=== PATIENT | female | born 1975 | race Caucasian/White ===

== ENCOUNTER 2019-07-28 09:00 | Outpatient (CLI) | payer OTHER, SELFPAY ==
[2019-07-29 02:46] LABS: COVID-19 RT-PCR UVMMC Result Negative (Negative)
== END 2019-07-28 09:20 ==
PROVIDERS: PCP Family Medicine; Visit Provider Family Medicine
DX: R50.9 Fever, unspecified (principal); Z11.59 Encounter for screening for other viral diseases
CPT/HCPCS: U0003

== ENCOUNTER 2019-08-25 14:46 | Outpatient (REF) | payer OTHER, SELFPAY ==
[2019-08-25 15:22] LABS: Bilirubin Negative (Negative); Blood Negative (Negative); Clarity Sl Cloudy (Clear); Glucose Negative (Negative); Ketones 15 mg/dL (Negative); Leukocyte Esterase Negative (Negative); Nitrite Negative (Negative); Specific Gravity <= 1.005 (1.005-1.025); Urobilinogen 0.2 EU/dL (Up TO 0.2)
== END 2019-08-25 15:06 ==
LOC: LBN 14:46
PROVIDERS: PCP Family Medicine; Visit Provider Nurse Practitioner
DX: Z80.52 Family history of malignant neoplasm of bladder (principal); R30.0 Dysuria
CPT/HCPCS: 81003; 87086

== ENCOUNTER 2021-09-02 12:25 | Outpatient (CLI) | payer OTHER, SELFPAY ==
--- NOTE | 2021-09-02 09:30 | DI.RAD_ITS ---
Exam(s) XR WRIST LT COMPLETE EXAM: XR WRIST LT COMPLETE CLINICAL HISTORY: left wrist pain, M25.532. TECHNIQUE: 2D digital imaging was performed of the left wrist. Three images were obtained. PA, obl ique and lateral views were obtained. COMPARISON: No exams were available for comparison FINDINGS: BONES: No acute fracture is present. No bony destructive lesion is seen. There is a benign-appearing cyst in the distal pole of the scaphoid. JOINTS: The carpal bones are normally aligned. SOFT TISSUE: Normal. IMPRESSION: Unremarkable radiographs of the left wrist. DATA REPOSITORY: RADIATION DOSE DELIVERED:
--- OUTSIDE RECORDS SUMMARY | 2021-09-02 12:28 | XMS_ITS | Clinical Summary ---
:1975 Author Organization [facility] Address [address] [place] [address] Care Team Providers Name Role Phone Radha Preston MD Primary Care Provider Social History Tobacco Use Types Packs/Day Years Used Date Never Assessed Sex Assigned at Date Recorded Not on file Plan of Treatment Health Maintenance Due Date Last Done Comments COVID-19 Vaccine (1) 1987 Care Teams Software Reverse Engineer Relationship Specialty Start Date End Date Radha Preston MD PCP - General 12/18/14 [address] [place], [place] [id number]
--- OUTSIDE RECORDS SUMMARY | 2021-09-02 12:28 | XMS_ITS | Encounter Summary ---
:1975 Author Organization [facility] Address [address] [place] [address] Care Team Providers Name Role Phone Radha Preston MD Primary Care Provider Encounter Details Date Type Department Care Team Description 08/13/2020 Lab Requisition [facility] Radha Preston, Encounter for other Pathology & MD general examination Laboratory Medicine [address] [place] [address] [address] [place] [id number] [phone] Social History Tobacco Use Types Packs/Day Years Used Date Never Assessed Sex Assigned at Date Recorded Not on file documented as of this encounter Plan of Treatment Not on filedocumented as of this encounter Procedures Procedure Name Priority Date/Time Associated Diagnosis Comme nts PAP TEST Today 08/08/2020 8:45 EDT Encounter for other R esults for this general examination procedur e are in the results section. documented in this encounter Results PAP TEST (08/08/2020 8:45 EDT) Specimens A. Cervix and/or [facility] MEDICAL Endocervix , CENTER ThinPrep Imaging LABORATORY System with Manual SERVICES Evaluation Specimen Adequacy Unsatisfactory for [facility] MEDICAL evaluation - CENTER insufficient numbers LABORATORY of squamous SERVICES epithelial cells (less than 10% of expected cellularity). General Unsatisfactory [facility] MEDICAL Categorization CENTER LABORATORY SERVICES Educational Comments Unsatisfactory - Specimen pr ocessed and examined, but unsatisfactory for evaluation of epithelial abnormality. Recommend Pap test in 2-4 months as stated in ASCCP's 2012 Updated Guidelines. HPV testing [facility] will not be performed due to the potential for false n egative results. CENTER LABORATORY SERVICES Attestation . [facility] CENTER signed by ISABELLE Sharif CT(ASCP) o n SERVICES 08/20/2020 at 10 20 Clinical History See below [facility]OR[facility] SERVICES Performing Lab [facility] LABOR[facility] SERVICES Scanned Images [facility] SERVICES Specimen Pap Test - Cervix and/or Endocervix Performing Organization Address City/State/ZIP Code Phon e Number [facility] [address] [place] [address] SERVICES documented in this encounter Visit Diagnoses Diagnosis Encounter for other general examination documented in this encounter Care Teams Systems Planner Relationship Specialty Start Date End Date Radha Preston MD PCP - General 12/18/14 [address] [place], [place] [phone] documented as of this encounter
--- OUTSIDE RECORDS SUMMARY | 2021-09-02 12:29 | XMS_ITS | Encounter Summary ---
:1975 Author Organization [facility] Address [address] [place] [address] Care Team Providers Name Role Phone Radha Preston MD Primary Care Provider Encounter Details Date Type Department Care Team Description 07/29/2017 Results Only [facility]- [facility] Radha Preston MD [phone] [place] [address] (Wo rk) Social History Tobacco Use Types Packs/Day Years Used Date Never Assessed Sex Assigned at Date Recorded Not on file documented as of this encounter Plan of Treatment Not on filedocumented as of this encounter Procedures Procedure Name Priority Date/Time Associated Diagnosis Comme nts PAP TEST- RESULT Routine 07/29/2017 0:00 EDT Resu lts for this ONLY procedure are i n the results section. documented in this encounter Results PAP TEST- RESULT ONLY (07/29/2017 0:00 EDT) Pathology Report: CYTOPATHOLOGY REPORT [facility] Reports generated via electronic interface contain raya ginal data; SERVICES however they are lacking the format of the original re port. Caution should be taken when reading/interpreting unfo rmatted reports. Name: ? MARCIA OGDEN ? Accession #: ? [id number] ? : ? 1975 (Age: 41) ??F ?Collect Date: ? 07/29/2017 ? Location: ? [facility] ? Receive Date: ? 07/31/19 18 ? Provider: RADHA PRESTON MD Copy to: ? Final Report SPECIMEN ADEQUACY ? Satisfactory for Evaluation - transformation zone component present GENERAL CATEGORIZATION ? Negative for Intraepithelial Lesion or Malignan cy INTERPRETATION ? Reactive cellular donovan nges associated with inflammation present (includes repair). Last Menstrual Period: 2 WKS AGO Hormonal/Contraceptive status: Intrauterine device: NU VARING Previous Gynecologic Pathology: ASC-US: 08/06/16 Treatment History: Colposcopy: 08/06/16 Infection History: Pos for HPV: 08/06/16 Specimen/Source: ??Pap Test, Cervix/Endocervix, ThinPr ep Imaging System with manual evaluation Document reviewed and electronically signed by: ? DEE CLARKE MD ? Report ??Date: 08/09/2017 11:05 HPV with Pap Test ? Date Ordered: ? 08/05/2017 ? Status: ?? Signed Out ?Date Complete: ? 08/10/2017 ? By: ??Sys tem Interface ? Date Reported: ? 08/10/2017 ? Interpretation RESULT: Negative for HPV. No E6 or E7 mRNA is detected from HPV types 16,18,31,3 3,35, 39,45,51,52,56,58,59,66, and 68 by slip injector and applicator media desire amplification. Comments Document reviewed and electronically signed by: ? System Interface ? Report date: 08/10/2017 By the signature above, the attending physician certif ies that he/she has personally conducted a gross and/or microscopic examin ation of the described specimens and rendered or confirmed the above diagnosi s. End of Report Specimen Performing Organization Address City/State/ZIP Code Phon e Number [facility] [address] [place] [address] SERVICES documented in this encounter Visit Diagnoses Not on filedocumented in this encounter Care Teams Cell Attendant Helper Relationship Specialty Start Date End Date Radha Preston MD PCP - General 12/18/14 [address] [place] [address] documented as of this encounter
--- OUTSIDE RECORDS SUMMARY | 2021-09-02 12:29 | XMS_ITS | Encounter Summary ---
:1975 Author Organization [facility] Address [address] [place] [address] Care Team Providers Name Role Phone Radha Preston MD Primary Care Provider Encounter Details Date Type Department Care Team Description 07/29/2017 Hospital Encounter [facility] [place] Unknown, Provider, [facility] [address] [facility] [phone] [place] [address] (Work) [phone] Social History Tobacco Use Types Packs/Day Years Used Date Never Assessed Sex Assigned at Date Recorded Not on file documented as of this encounter Discharge Disposition Disposition Code Departure Means Destination Home or Self Intermediate documented in this encounter Plan of Treatment Not on filedocumented as of this encounter Visit Diagnoses Not on filedocumented in this encounter Care Teams Elevator Constructor Relationship Specialty Start Date End Date Radha Preston MD PCP - General 12/18/14 [address] [place], [place] [phone] documented as of this encounter
--- OUTSIDE RECORDS SUMMARY | 2021-09-02 12:29 | XMS_ITS | Encounter Summary ---
:1975 Author Organization [facility] Address [address] [place] [address] Care Team Providers Name Role Phone Unavailable Primary Care Provider Unavailable Encounter Details Date Type Department Care Team Description 05/09/2007 Results Only [facility] - Radha Preston MD Maple conversion [address] [facility] [address] [place] [address] [place], [place] [phone] (Wo rk) Social History Tobacco Use Types Packs/Day Years Used Date Never Assessed Sex Assigned at Date Recorded Not on file documented as of this encounter Plan of Treatment Not on filedocumented as of this encounter Procedures Procedure Name Priority Date/Time Associated Diagnosis Comme nts CYTOPATHOLOGY Routine 05/09/2007 0:00 EDT Results for this procedure are i n the results section . documented in this encounter Results CYTOPATHOLOGY (05/09/2007 0:00 EDT) Pathology Report: CYTOPATHOLOGY REPORT [facility] Reports generated via electronic interface contain raya ginal data; however they are lacking the format of the original re port. Caution should be taken when reading/interpreting unfo rmatted reports. Name: ? MARCIA OGDEN ? Accession #: ? [id number] : ? 1975 (Age: 31) ??F ?Collect Date: ? 04/10 Location: ? [facility] ? Receive Date : ? 05/11/2007 Provider: ?RADHA PRESTON MD Copy to: ? Specimen/Source: ?ThinPrep Pap Test, E ndocervix, processed on [employer] ThinPrep Imaging System, with manual evaluation Last Menstrual Period: ? 05-08-07 Other: ? HPVA - HPV testing requested if ASC-US on the current ThinPrep Pap test. ? SPECIMEN ADEQUACY ? Satisfactory for Evaluation - transformation zone component present - scant squamous epithelial component secondary to exc essive blood GENERAL CATEGORIZATION ? Negative for Intraepithelial Lesion or Malignan cy ? Document reviewed and electronically signed by: ? YADIEL Martinez(ASCP) ? Report Date: ??05/16/2007 10:32 End of Report Specimen Performing Organization Address City/State/ZIP Code Phon e Number [facility] [address] [place] [address] SERVICES [facility] [address] [place] [address] documented in this encounter Visit Diagnoses Not on filedocumented in this encounter
--- OUTSIDE RECORDS SUMMARY | 2021-09-02 12:29 | XMS_ITS | Encounter Summary ---
:1975 Author Organization [facility] Address [address] [place] [address] Care Team Providers Name Role Phone Radha Preston MD Primary Care Provider Encounter Details Date Type Department Care Team Description 08/06/2016 Results Only [facility] Prashanth Toribio MD [phone] [place] [address] (Wo rk) Social History Tobacco Use Types Packs/Day Years Used Date Never Assessed Sex Assigned at Date Recorded Not on file documented as of this encounter Plan of Treatment Not on filedocumented as of this encounter Procedures Procedure Name Priority Date/Time Associated Diagnosis Comme [facility] SURGICAL PATHOLOGY Routine 08/06/2016 9:19 EDT Re sults for this procedure are i n the results section. documented in this encounter Results SURGICAL PATHOLOGY (08/06/2016 9:19 EDT) Pathology SURGICAL PATHOLOGY REPORT [facility] Report: Reports generated via electronic interface conta in original data; CENTER LABORATORY however they are lacking the format of the original re port. SERVICES Caution should be taken when reading/interpreting unfo rmatted reports. Name: ? MARCIA OGDEN ? Accession #: ? [id number] ? : ? 1975 (Age: 40) ??F ? Collect Date: ? 08/06/2016 ? Location: ? [facility] ? Receive Date: ? 08/08/19 17 ? Provider: PRASHANTH TORIBIO MD Copy to: RADHA PRESTON MD ? Final Pathologic Diagnosis: A. ENDOCERVIX, CURETTAGE: - Fragments of benign endocervix. B. ECTOCERVIX, 6 O'CLOCK, BIOPSY: - Benign transformation zone mucosa. C. ECTOCERVIX, 12 O'CLOCK, BIOPSY: - ??Atypical squamous mucosa suggestive of but not gurjit gnostic for low grade squamous intraepithelial lesion. ??See comment. Comment: Histologic sections of specimen C show a fragmen t of atypical squamous mucosa with mildly enlarged cells, focal binucleation, and irregular nuclear contours. The diagnosis of LSIL was co nsidered, however, given the background of extensive acute inflammation, reactive atypia cannot be entirely excluded. This area disappears on deeper levels. Clinical correlation is recommended. Supervisor [employer] Department slides were shown at our intradepartmental consultatio n conference. Document reviewed and electronically signed by: FELICITA FAIRBANKS MD Report ??Date: 08/14/2016 16:41 By the signature above, the attending physician certif ies that he/she has personally conducted a gross and/or microscopic examin ation of the described specimens and rendered or confirmed the above diagnosi s. Specimen(s) Received: A. ??ECC B. ??6 o'clock ectocervix C. ??12 o'clock ectocervix Clinical History: ASCUS, (+) HPV Gross Description: A. ?Received in formalin labelled with proper p atient identification (initials C, H) and 1. endo cx curettage is an aggregate of jha-brown mucinous material (1.4 x 0.6 x 0.5 cm). Submitted in toto in A1 . B. ?Received in formalin labelled with proper p atient identification (initials C, H) and 2. cx 6 o'clock is a singl e white-brown tissue fragment (0.4 x 0.4 x 0.2 cm). Submitted intact in B1. C. ?Received in formalin labelled with proper p atient identification (initials C, H) and 3. cx 12 o'clock is an aggregate of jha-white tissues admixed with mucinous material (1.2 x 0.5 x 0.4 cm). Submitted in toto in C1. Crystal Jesus 08/07/2016 10:11 AM End of Report Specimen Performing Organization Address City/State/ZIP Code Phon e Number [facility] [address] [place] [address] SERVICES documented in this encounter Visit Diagnoses Not on filedocumented in this encounter Care Teams Class 1 Owner Operator Relationship Specialty Start Date End Date Radha Preston MD PCP - General 12/18/14 [address] [place], [place] [address] documented as of this encounter
--- OUTSIDE RECORDS SUMMARY | 2021-09-02 12:29 | XMS_ITS | Encounter Summary ---
:1975 Author Organization [facility] Address [address] [place] [address] Care Team Providers Name Role Phone Unavailable Primary Care Provider Unavailable Encounter Details Date Type Department Care Team Description 09/06/2012 Results Only [facility] Tisha Preston MD Laboratory Services - [address] [place] [address] [address] [place] [phone] (Wo rk) Social History Tobacco Use Types Packs/Day Years Used Date Never Assessed Sex Assigned at Date Recorded Not on file documented as of this encounter Plan of Treatment Not on filedocumented as of this encounter Procedures Procedure Name Priority Date/Time Associated Diagnosis Comme nts PAP TEST- RESULT Routine 09/06/2012 0:00 EDT Resu lts for this ONLY procedure are i n the results section. documented in this encounter Results PAP TEST- RESULT ONLY (09/06/2012 0:00 EDT) Pathology Report: CYTOPATHOLOGY REPORT [facility] Reports generated via electronic interface contain raya ginal data; however they are lacking the format of the original re port. Caution should be taken when reading/interpreting unfo rmatted reports. Name: ? MARCIA OGDEN ? Accession #: ? [id number] ? : ? 1975 (Age: 36) ??F ?Collect Da te: ? 09/06/2012 ? Location: ? [facility] ? Receive Date: ? 013 ? Provider: KASSANDRA PRESTON MD Copy to: ? Final Report SPECIMEN ADEQUACY ? Satisfactory for Evaluation - transformation zone component present - scant squamous epithelial component secondary to exc essive blood GENERAL CATEGORIZATION ? Negative for Intraepithelial Lesion or Malignan cy ?? Last Menstrual Period: 08/05/12 Hormonal/Contraceptive status: Yes: Nuva Ring Specimen/Source: ??Pap Test, Cervix/Endocervix, ThinPr ep Imaging System with manual evaluation Document reviewed and electronically signed by: ? Alessandra Hamilton, [facility](ASCP) ? Report ??Date: 09/16/2012 12:12 HPV with Pap Test ? Date Ordered: ? 09/16/2012 ? Status: ?? Signed Out ?Date Complete: ? 09/20/2012 ? By: ??S ystem Interface ? Date Reported: ? 09/20/2012 ? Interpretation RESULT: Negative for HPV. No E6 or E7 mRNA is detected from HPV types 16,18,31,3 3,35, 39,45,51,52,56,58,59,66, and 68 by animal trainer media desire amplification. Comments Document reviewed and electronically signed by: ? System Interface ? Report date: 09/20/2012 By the signature above, the attending physician certif ies that he/she has personally conducted a gross and/or microscopic examin ation of the described specimens and rendered or confirmed the above diagnosi s. End of Report Specimen Performing Organization Address City/State/ZIP Code Phon e Number [facility] [address] [place] [address] SERVICES [facility] [address] [place] [address] documented in this encounter Visit Diagnoses Not on filedocumented in this encounter
--- OUTSIDE RECORDS SUMMARY | 2021-09-02 12:29 | XMS_ITS | Encounter Summary ---
:1975 Author Organization [facility] Address [address] [place] [address] Care Team Providers Name Role Phone Radha Preston MD Primary Care Provider Encounter Details Date Type Department Care Team Description 10/28/2015 Results Only [facility] Radha Preston MD [phone] [place] [address] (Wo rk) Social History Tobacco Use Types Packs/Day Years Used Date Never Assessed Sex Assigned at Date Recorded Not on file documented as of this encounter Plan of Treatment Not on filedocumented as of this encounter Procedures Procedure Name Priority Date/Time Associated Diagnosis Comme nts PAP TEST- RESULT Routine 10/28/2015 0:00 EDT Resu lts for this ONLY procedure are i n the results section. documented in this encounter Results PAP TEST- RESULT ONLY (10/28/2015 0:00 EDT) Pathology Report: CYTOPATHOLOGY REPORT [facility] Reports generated via electronic interface contain raya ginal data; SERVICES however they are lacking the format of the original re port. Caution should be taken when reading/interpreting unfo rmatted reports. Name: ? MARCIA OGDEN ? Accession #: ? [id number] : ? 1975 (Age: 39) ??F ?Collect Date: ? 10/27 Location: ? [facility] ? Receive Date : ? 10/29/2015 Provider: ?RADHA PRESTON MD Copy to: ? Specimen/Source: ? Pap Test, Cervix/Endocervix, ThinPrep Imaging System with manual evaluation Last Menstrual Period: ? 1 month ago Hormonal/Contraceptive Status: ? NuvaRing Previous Gynecologic Pathology: ? HPV: + 03/2015 ? SPECIMEN ADEQUACY ? Satisfactory for Evaluation - transformation zone component present GENERAL CATEGORIZATION ? Negative for Intraepithelial Lesion or Malignan cy ? Document reviewed and electronically signed by: ? KASSIE Bridges(ASCP) ? Report Date: ??11/04/2015 15:27 End of Report Specimen Performing Organization Address City/State/ZIP Code Phon e Number [facility] [address] [place] [address] SERVICES documented in this encounter Visit Diagnoses Not on filedocumented in this encounter Care Teams Berry Picker Relationship Specialty Start Date End Date Radha Preston MD PCP - General 12/18/14 [address] [place], [place] [phone] documented as of this encounter
--- OUTSIDE RECORDS SUMMARY | 2021-09-02 12:29 | XMS_ITS | Encounter Summary ---
:1975 Author Organization [facility] Address [address] [place] [address] Care Team Providers Name Role Phone Unavailable Primary Care Provider Unavailable Encounter Details Date Type Department Care Team Description 09/14/2006 Results Only [facility] - Pb Venegas MD conversion [address] [facility] [facility] [place] [address] [place] [address] [phone] Social History Tobacco Use Types Packs/Day Years Used Date Never Assessed Sex Assigned at Date Recorded Not on file documented as of this encounter Plan of Treatment Not on filedocumented as of this encounter Procedures Procedure Name Priority Date/Time Associated Diagnosis Comme nts SURGICAL PATHOLOGY Routine 09/14/2006 0:00 EDT Re sults for this procedure are i n the results section. documented in this encounter Results SURGICAL PATHOLOGY (09/14/2006 0:00 EDT) Pathology Report: SURGICAL PATHOLOGY REPORT [facility] Reports generated via electronic interface contain raya ginal data; LAB however they are lacking the format of the original re port. Caution should be taken when reading/interpreting unfo rmatted reports. Name: ? MARCIA OGDEN ? Accession #: ? [id number] ? : ? 1975 (Age: 30) ??F ? Collect Date: ? 09/14/2006 ? Location: ? [facility] ? Receive Date: ? 09/15/19 07 ? Provider: PB BEYER MD Copy to: KASSANDRA ROBERTS MD ? Final Pathologic Diagnosis: ? Gallbladder, cholecystectomy: 1. ?Cholelithiasis. 2. ? Cholesterolosis. Document reviewed and electronically signed by: FRANKO SAEED MD Report ??Date: 09/16/2006 14:59 By the signature above, the attending physician certif ies that he/she has personally conducted a gross and/or microscopic examin ation of the described specimens and rendered or confirmed the above diagnosi s. Specimen(s) Received: ? Gallbladder Clinical History: ? RUQ pain post fatty food; 3 cm gallstone Gross Description: ? Received in formalin labelled Mell and gallbladder is a 5.8 x 2.8 cm gallbladder with jha glistening serosa. ??The mucosa i s jha-green with focal yellow streaking. ??The wall averages 0.2 cm in thickness. ??The lumen contains green mucoid bile and one ovoid 2.6 cm stone. ??Repres entative sections are submitted in one cassette. ??(Brody Evangelista)/[facility] End of Report Specimen Performing Organization Address City/State/ZIP Code Phon e Number [facility] [address] [place] [address] SERVICES [facility] [address] [place] [address] documented in this encounter Visit Diagnoses Not on filedocumented in this encounter
--- OUTSIDE RECORDS SUMMARY | 2021-09-02 12:29 | XMS_ITS | Encounter Summary ---
:[address] [facility] Address [address] [place] [address] Care Team Providers Name Role Phone Radha Preston MD Primary Care Provider Encounter Details Date Type Department Care Team Description 07/09/2016 Results Only [facility]- PRISM Radha Preston MD [phone] [place] [address] (Wo rk) Social History Tobacco Use Types Packs/Day Years Used Date Never Assessed Sex Assigned at Date Recorded Not on file documented as of this encounter Plan of Treatment Not on filedocumented as of this encounter Procedures Procedure Name Priority Date/Time Associated Diagnosis Comme nts PAP TEST- RESULT Routine 07/09/2016 0:00 EDT Resu lts for this ONLY procedure are i n the results section. documented in this encounter Results PAP TEST- RESULT ONLY (07/09/2016 0:00 EDT) Pathology Report: CYTOPATHOLOGY REPORT [facility] Reports generated via electronic interface contain raya ginal data; SERVICES however they are lacking the format of the original re port. Caution should be taken when reading/interpreting unfo rmatted reports. Name: ? MRACIA OGDEN ? Accession #: ? [id number] ? : ? 1975 (Age: 40) ??F ?Collect Date: ? 2016 ? Location: ? [facility] ? Receive Date: ? 7 ? Provider: RADHA PRESTON MD Copy to: ? Final Report SPECIMEN ADEQUACY ? Satisfactory for Evaluation - transformation zone component present GENERAL CATEGORIZATION ? Epithelial Cell Abnormality INTERPRETATION ? Squamous Cell Abnormality - Atypical squamous c ells, undetermined significance (ASC-US). EDUCATIONAL NOTES/RECOMMENDATIONS ? [facility] recommends foll owing ASCCP's 2012 Updated Consensus Guidelines for the Management of Abnormal Cervical Cancer Screening T ests and Cancer Precursors (JLGTD, 2013; 17(5):S1-S27). ??Conse nsus guidelines are available online at www.asccp.org. Last Menstrual Period: 06/26/2015 Hormonal/Contraceptive status: NuvaRing Previous Gynecologic Pathology: HPV: + 2016 Specimen/Source: ??Pap Test, Cervix, ThinPrep Imaging System with manual evaluation Document reviewed and electronically signed by: ? DEE CLARKE MD ? Report ??Date: 07/22/2016 15:46 HPV with Pap Test ? Date Ordered: ? 07/22/2016 ? Status: ?? Signed Out ?Date Complete: ? 07/23/2016 ? By: ??Sy stem Interface ? Date Reported: ? 07/23/2016 ? Interpretation RESULT: Positive for high or intermediate risk HPV. E6 OR E7 mRNA from one or more types of HPV types 16,1 8,31, 33,35,39,45,51,52,56,58,59,66, and 68 is detected by primary care coordinator mediated amplification. High and intermediate risk HPV types are associated wi th most squamous intraepithelial lesions and cervical can cers. Comments Document reviewed and electronically signed by: ? System Interface ? Report date: 07/23/2016 By the signature above, the attending physician certif ies that he/she has personally conducted a gross and/or microscopic examin ation of the described specimens and rendered or confirmed the above diagnosi s. End of Report Specimen Performing Organization Address City/State/ZIP Code Phon e Number [facility] [address] [place] [address] SERVICES documented in this encounter Visit Diagnoses Not on filedocumented in this encounter Care Teams Senior Construction Manager Relationship Specialty Start Date End Date Radha Preston MD PCP - General 12/18/14 [address] [place] [address] documented as of this encounter
--- OUTSIDE RECORDS SUMMARY | 2021-09-02 12:29 | XMS_ITS | Encounter Summary ---
:1975 Author Organization [facility] Address [address] [place] [address] Care Team Providers Name Role Phone Unavailable Primary Care Provider Unavailable Encounter Details Date Type Department Care Team Description 06/03/2001 Results Only [facility] - Shimon Herrera MD conversion [address] [place] [address] Social History Tobacco Use Types Packs/Day Years Used Date Never Assessed Sex Assigned at Date Recorded Not on file documented as of this encounter Plan of Treatment Not on filedocumented as of this encounter Procedures Procedure Name Priority Date/Time Associated Diagnosis Comme nts CYTOPATHOLOGY Routine 06/03/2001 0:00 EDT Results for this procedure are i n the results section . documented in this encounter Results CYTOPATHOLOGY (06/03/2001 0:00 EDT) Pathology Report: CYTOPATHOLOGY REPORT [facility] Reports generated via electronic interface contain raya ginal data; however they are lacking the format of the original re port. Caution should be taken when reading/interpreting unfo rmatted reports. Name: ? MARCIA OGDEN ? Accession #: ? [id number] : ? 1975 (Age: 25) ??F ?Collect Date: ? 05/10 Location: ? [facility] ? Receive Date : ? 06/07/2001 Provider: ?SHIMON KINSEY MD Copy to: ? Specimen/Source: ?ThinPrep Pap Test, Cervix/ Endocervix Last Menstrual Period: ? Hormonal/Contraceptive Status: ? Control Pills ? SPECIMEN ADEQUACY ? Satisfactory for Evaluation - transformation zone component present GENERAL CATEGORIZATION ? Negative for Intraepithelial Lesion or Malignan cy ? Document reviewed and electronically signed by: ? KASSIE Becerril(ASCP) ? Report Date: ??06/09/2001 13:30 End of Report Specimen Performing Organization Address City/State/ZIP Code Phon e Number [facility] [address] [place] [phone] SERVICES [facility] [address] [place] [address] documented in this encounter Visit Diagnoses Not on filedocumented in this encounter
--- OUTSIDE RECORDS SUMMARY | 2021-09-02 12:29 | XMS_ITS | Encounter Summary ---
:1975 Author Organization [facility] Address [address] [place] [address] Care Team Providers Name Role Phone Radha Preston MD Primary Care Provider Encounter Details Date Type Department Care Team Description 04/02/2015 Results Only [facility]- [facility] Radha Preston MD [phone] [place] [address] (Wo rk) Social History Tobacco Use Types Packs/Day Years Used Date Never Assessed Sex Assigned at Date Recorded Not on file documented as of this encounter Plan of Treatment Not on filedocumented as of this encounter Procedures Procedure Name Priority Date/Time Associated Diagnosis Comme nts PAP TEST- RESULT Routine 04/02/2015 0:00 EST Resu lts for this ONLY procedure are i n the results section. documented in this encounter Results PAP TEST- RESULT ONLY (04/02/2015 0:00 EST) Pathology Report: CYTOPATHOLOGY REPORT [facility] Reports generated via electronic interface contain raya ginal data; SERVICES however they are lacking the format of the original re port. Caution should be taken when reading/interpreting unfo rmatted reports. Name: ? MARCIA OGDEN ? Accession #: ? [id number] ? : ? 1975 (Age: 39) ??F ?Collect Date: ? 04/02/2015 ? Location: ? [facility] ? Receive Date: ? 04/03/19 16 ? Provider: RADHA PRESTON MD Copy to: ? Final Report SPECIMEN ADEQUACY ? Satisfactory for Evaluation - transformation zone component present GENERAL CATEGORIZATION ? Negative for Intraepithelial Lesion or Malignan cy ?? Last Menstrual Period: 2 Weeks Ago Hormonal/Contraceptive status: Yes: Nuvaring Other: Associate Loan Officer Clinical/Treatment Hx - None Specimen/Source: ??Pap Test, Cervix/Endocervix, ThinPr ep Imaging System with manual evaluation Document reviewed and electronically signed by: ? Citlaly Alcazar, CT(ASCP) ? Report ??Date: 04/10/2015 08:25 HPV with Pap Test ? Date Ordered: ? 04/10/2015 ? Status: ?? S igned Out ?Date Complete: ? 04/12/2015 ? By: ??Sys tem Interface ? Date Reported: ? 04/12/2015 ? Interpretation RESULT: Positive for high or intermediate risk HPV. E6 OR E7 mRNA from one or more types of HPV types 16,1 8,31, 33,35,39,45,51,52,56,58,59,66, and 68 is detected by wilderness guide mediated amplification. High and intermediate risk HPV types are associated wi th most squamous intraepithelial lesions and cervical can cers. Comments Document reviewed and electronically signed by: ? System Interface ? Report date: 04/12/2015 By the signature above, the attending physician certif ies that he/she has personally conducted a gross and/or microscopic examin ation of the described specimens and rendered or confirmed the above diagnosi s. End of Report Specimen Performing Organization Address City/State/ZIP Code Phon e Number [facility] [address] [place] [address] SERVICES documented in this encounter Visit Diagnoses Not on filedocumented in this encounter Care Teams Process Mold Technician Relationship Specialty Start Date End Date Radha Preston MD PCP - General 12/18/14 [address] [place], [place] [phone] documented as of this encounter
--- OUTSIDE RECORDS SUMMARY | 2021-09-02 12:29 | XMS_ITS | Encounter Summary ---
:1975 Author Organization [facility] Address [address] [place] [address] Care Team Providers Name Role Phone Unavailable Primary Care Provider Unavailable Encounter Details Date Type Department Care Team Description 01/12/2000 Results Only [facility] - Nayan Galeas CNM conversion [address] [place] [address] [place], [place] [address] [phone] Social History Tobacco Use Types Packs/Day Years Used Date Never Assessed Sex Assigned at Date Recorded Not on file documented as of this encounter Plan of Treatment Not on filedocumented as of this encounter Procedures Procedure Name Priority Date/Time Associated Diagnosis Comme [facility] CYTOPATHOLOGY Routine 01/12/2000 0:00 EST Results for this procedure are i n the results section . documented in this encounter Results CYTOPATHOLOGY (01/12/2000 0:00 EST) Pathology Report: CYTOPATHOLOGY REPORT [facility] Reports generated via electronic interface contain raya ginal data; however they are lacking the format of the original re port. Caution should be taken when reading/interpreting unfo rmatted reports. Name: ? MARCIA OGDEN ? Accession #: ? [id number] : ? 1975 (Age: 24) ??F ?Collect Date: ? 05/1999 Location: ? [facility] ? Receive Date : ? 01/14/2000 Provider: ?NAYAN DUENAS CNM Copy to: ? Specimen/Source: ?ThinPrep Pap Test, Cervix/ Endocervix Last Menstrual Period: ? 09/??middle/ Menstrual/ Status: ? SPECIMEN ADEQUACY ? Satisfactory for evaluation. GENERAL CATEGORIZATION ? Within Normal Limits ? Document reviewed and electronically signed by: ? KASSIE Pina(ASCP) ? Report Date: ??01/16/2000 13:12 End of Report Specimen Performing Organization Address City/State/ZIP Code Phon e Number [facility] [address] [place] [address] SERVICES [facility] [address] [place] [address] documented in this encounter Visit Diagnoses Not on filedocumented in this encounter
--- OUTSIDE RECORDS SUMMARY | 2021-09-02 12:29 | XMS_ITS | Encounter Summary ---
:1975 Author Organization [facility] Address [address] [place] [address] Care Team Providers Name Role Phone Unavailable Primary Care Provider Unavailable Encounter Details Date Type Department Care Team Description 05/06/2006 Results Only [facility] - Radha Preston MD Maple conversion [address] [facility] [address] [place] [address] [place], [place] [phone] (Wo rk) Social History Tobacco Use Types Packs/Day Years Used Date Never Assessed Sex Assigned at Date Recorded Not on file documented as of this encounter Plan of Treatment Not on filedocumented as of this encounter Procedures Procedure Name Priority Date/Time Associated Diagnosis Comme nts CYTOPATHOLOGY Routine 05/06/2006 0:00 EDT Results for this procedure are i n the results section . documented in this encounter Results CYTOPATHOLOGY (05/06/2006 0:00 EDT) Pathology Report: CYTOPATHOLOGY REPORT [facility] Reports generated via electronic interface contain raya ginal data; however they are lacking the format of the original re port. Caution should be taken when reading/interpreting unfo rmatted reports. Name: ? MARCIA OGDEN ? Accession #: ? [id number] : ? 1975 (Age: 30) ??F ?Collect Date: ? 04/09 Location: ? [facility] ? Receive Date : ? 05/10/2006 Provider: ?RADHA PRESTON MD Copy to: ? Specimen/Source: ?ThinPrep Pap Test, E ndocervix, processed on [employer] ThinPrep Imaging System, with manual evaluation Last Menstrual Period: ? 04/15/06 Hormonal/Contraceptive Status: ? Yes Other: ? HPVA - HPV testing requested if ASC-US on the current ThinPrep Pap test. ? SPECIMEN ADEQUACY ? Satisfactory for Evaluation - transformation zone component present GENERAL CATEGORIZATION ? Negative for Intraepithelial Lesion or Malignan cy ? Document reviewed and electronically signed by: ? KASSIE Baker(ASCP) ? Report Date: ??05/12/2006 08:45 End of Report Specimen Performing Organization Address City/State/ZIP Code Phon e Number [facility] [address] [place] [address] SERVICES [facility] [address] [place] [address] documented in this encounter Visit Diagnoses Not on filedocumented in this encounter
== END 2021-09-02 12:45 ==
LOC: DI 12:27
PROVIDERS: PCP Family Medicine; Visit Provider Physician Assistant
DX: M25.532 Pain in left wrist (principal)
CPT/HCPCS: 73110

== ENCOUNTER 2022-02-24 12:56 | Outpatient (REF) | payer SELFPAY ==
[2022-02-24 20:48] LABS: Bilirubin Negative (Negative); Blood Trace-intact (Negative); Clarity Clear (Clear); Glucose Negative (Negative); Ketones Negative (Negative); Leukocyte Esterase Negative (Negative); Nitrite Positive (Negative); Specific Gravity <= 1.005 (1.005-1.025); Urobilinogen 0.2 EU/dL (Up TO 0.2); pH 5.5 (5-8)
[2022-02-24 20:55] LABS: Epithelial Cells Few HPF (Negative); RBC 0-2 HPF (0-2); WBC Negative HPF (0-5)
[2022-02-24 20:56] LABS: Bacteria Rare HPF (Negative); C & S Indicated? No; Crystals Negative HPF (Negative); Mucus Negative (Negative)
== END 2022-02-24 12:57 | disposition home or self-care (01) ==
LOC: LBN 12:56
PROVIDERS: PCP Family Medicine; Visit Provider Family Medicine
DX: R35.0 Frequency of micturition (principal); R30.0 Dysuria
CPT/HCPCS: 81003; 81015

== ENCOUNTER 2022-03-23 15:13 | Outpatient (REF) | payer OTHER, SELFPAY ==
--- NOTE | 2022-03-23 13:40 | PAPFT_PTH ---
PATIENT: Marcia Obrien LOC: [facility] U#:[id number] AGE/SX: 46/F ROOM: RE03/23/[address]: Laura Vernon NP : 1975 BED: DIS: 03/23/2022 SPEC #: [id number] RECD: 03/23/22 17:52 STATUS: JENNA REJason #: [id number] [place]: 03/23/22 13:[address]: Laura Vernon NP DEPT: [facility] Cytology RECD BY: Cailin Haynes ENTERED: 03/23/22 17:53 SP TYPE: PAPFT OTHR DR: Radha Preston MD, DC Tissues: 1 - CX/ENDOCX FOR PAP SMEARS Procedures: PAP THIN PREP/UVM Screening HPV DNA PROBE Comments: [id number] (CHLAMYDIA/GC)
[2022-03-24 13:57] LABS: Chlamydia Result Negative (Negative); GC Result Negative (Negative)
== END 2022-03-23 15:14 | disposition home or self-care (01) ==
LOC: LBN 15:13
PROVIDERS: PCP Family Medicine; Visit Provider Nurse Practitioner Women's Health
DX: Z11.3 Encounter for screening for infections with a predominantly sexual mode of transmission (principal); Z12.4 Encounter for screening for malignant neoplasm of cervix; Z87.42 Personal history of other diseases of the female genital tract; Z11.51 Encounter for screening for human papillomavirus (HPV)
CPT/HCPCS: 87491; 87591; 88142; 87624

== ENCOUNTER 2022-10-28 22:39 | Outpatient (REF) | payer OTHER, SELFPAY | END 2022-10-28 22:40 | disposition home or self-care (01) | LOC: LBN 22:39 | PROVIDERS: PCP Family Medicine; Visit Provider Nurse Practitioner Family | DX: N39.0 Urinary tract infection, site not specified (principal) | CPT/HCPCS: 87077; 87086; 87186 ==

== ENCOUNTER → 2022-11-18 00:49 | Outpatient (CLI) | payer OTHER, SELFPAY ==
--- NOTE | 2022-11-18 07:15 | DI.MAMMO_ITS ---
Exam(s) MAMMO SCREENING EXAM: MAMMO SCREENING CLINICAL HISTORY: screening,BASELINE, Z12.39 TECHNIQUE: Mammograms were interpreted according to the usual protocol including computer analysis w [employer] CAD system, tomosynthesis and C-view imaging. COMPARISON: No exams were available for comparison Baseline examination. FINDINGS: The breasts are composed of scattered fibroglandular densities, Breast Density category B. No suspicious masses or suspicious microcalcifications are seen. No skin thickening or abnormal axillary lymph nodes are seen. There has been no significant change from prior exams. IMPRESSION: BI-RADS Category 1, Negative mammogram Yearly screening mammography is recommended. Breast Density - Category B, scattered fibroglandular densities. A negative radiographic report should not delay biopsy if a dominant or clinically suspicious mass is present. Up to ten percent of cancers are not identified on mammography. A negative report may reinforce clinical impression. Adenosis and dense breasts may obscure an underlying neoplasm. False positive reports average 6 to 10%. Patient will receive a letter notifying them of these results.
== END ==
PROVIDERS: PCP Family Medicine; Visit Provider Family Medicine
DX: Z12.31 Encounter for screening mammogram for malignant neoplasm of breast (principal)
CPT/HCPCS: 77063; 77067

== ENCOUNTER 2023-06-23 16:01 | Outpatient (REF) | payer OTHER, SELFPAY | END 2023-06-23 16:02 | disposition home or self-care (01) | LOC: LBN 16:01 | PROVIDERS: PCP Family Medicine; Visit Provider Nurse Practitioner Family | DX: R30.0 Dysuria (principal); B96.1 Klebsiella pneumoniae [K. pneumoniae] as the cause of diseases classified elsewhere | CPT/HCPCS: 87077; 87086; 87186 ==

== ENCOUNTER 2023-12-02 11:38 | Outpatient (CLI) | payer OTHER, SELFPAY ==
[2023-12-02 13:52] LABS: ALT 28 U/L (14-59); AST 18 U/L (15-37); Albumin 4.2 g/dL (3.4-5.0); Alkaline Phosphatase 60 U/L (46-116); Anion Gap 9.9 mmol/L (3-11); BUN 16 mg/dL (7-18); Bilirubin, Total 0.59 mg/dL (0.2-1.0); CO2 24.1 mmol/L (21.0-32.0); CREATININE 0.9 mg/dL (0.55-1.02); Calcium 9.3 mg/dL (8.5-10.1); Calculated LDL 106 mg/dL (<100); Chloride 107 mmol/L (98-107); Cholesterol 214 mg/dL (<200); Estimated GFR 78.86 (mL/min/1.73m2); Glucose 106 mg/dL (74-106); HDL Cholesterol 96 mg/dL (40-60); Potassium 3.9 mmol/L (3.5-5.1); Sodium 141 mmol/L (136-145); TSH (W/Ref FT4) 0.81 uIU/mL (0.36-3.74); Total Protein 7.7 g/dL (6.4-8.2); Triglyceride 61 mg/dL (<150)
[2023-12-02 23:43] LABS: Hepatitis C Ab w Rflx HCV PCR Negative (Negative)
== END 2023-12-02 11:39 | disposition home or self-care (01) ==
PROVIDERS: PCP Family Medicine; Referring Provider Family Medicine; Visit Provider Family Medicine
DX: I10 Essential (primary) hypertension (principal); Z00.00 Encounter for general adult medical examination without abnormal findings; E03.9 Hypothyroidism, unspecified; Z12.11 Encounter for screening for malignant neoplasm of colon; Z12.39 Encounter for other screening for malignant neoplasm of breast
CPT/HCPCS: 36415; 80053; 80061; 86803; 84443

== ENCOUNTER 2023-12-07 01:27 | Outpatient (CLI) | payer OTHER, SELFPAY ==
--- NOTE | 2023-12-07 06:15 | DI.MAMMO_ITS ---
Exam(s) MAMMO SCREENING EXAM: MAMMO SCREENING CLINICAL HISTORY: screening,z12.39 TECHNIQUE: Mammograms were interpreted according to the usual protocol including computer analysis w [employer] CAD system, tomosynthesis and C-view imaging. COMPARISON: 2022 FINDINGS: The breasts are composed of scattered fibroglandular densities, Breast Density category B. No suspicious masses or suspicious microcalcifications are seen. No skin thickening or abnormal axillary lymph nodes are seen. There has been no significant change from prior exams. IMPRESSION: BI-RADS Category 1, Negative mammogram Yearly screening mammography is recommended. Breast Density - Category B, scattered fibroglandular densities. A negative radiographic report should not delay biopsy if a dominant or clinically suspicious mass is present. Up to ten percent of cancers are not identified on mammography. A negative report may reinforce clinical impression. Adenosis and dense breasts may obscure an underlying neoplasm. False positive reports average 6 to 10%. Patient will receive a letter notifying them of these results.
== END 2023-12-07 01:47 ==
PROVIDERS: PCP Family Medicine; Visit Provider Family Medicine
DX: Z12.31 Encounter for screening mammogram for malignant neoplasm of breast (principal)
CPT/HCPCS: 77063; 77067

== ENCOUNTER 2024-03-27 08:53 | Day surgery (SDC) | payer OTHER, SELFPAY ==
[2024-03-27 09:34] VITALS: BP 97/67; PULSE 70; RESP 16; TEMP 36.6; O2SAT 99
[2024-03-27] MEDS: Lactated Ringers 1,000 ML 80 ML IV (09:52)
--- NOTE | 2024-03-27 10:23 | ANES.PREOP_ITS ---
General Info Date of Service Date Performed: 03/27/24 Height: 5 ft 3 in Weight: 66.4 kg Body Mass Index (BMI): 25.9 Surgical Procedure: Operation Date: 03/27/24 10:50 Proposed Procedure Side Surgeon p Colonoscopy Krish Bean MD Actual Procedure Side Surgeon p Colonoscopy Not Applicable Krish Bean MD Pre-Op Diagnosis Post-Op Diagnosis screening colonoscopy Meds Allergies and Home Medications Allergies Allergy/AdvReac Type Severity Reaction Status Date / Time Sulfa (Sulfonamide Allergy Unknown HIVES Verified 03/27/24 09:31 Antibiotics) Home Medication ?Medication ?Instructions ?Recorded clonazepam 0.5 mg tablet 0.5 mg PO BID PRN anxiety #20 10/27/21 tab-caps levonorgestrel 21 mcg/24 hr (up to 1 device intrauterine ONCE #1 ea 03/23/22 8 years) 52 mg intrauterine device (Mirena) albuterol sulfate 90 mcg/actuation 2 puff inhalation Q6H PRN 02/07/24 aerosol inhaler shortness of breath or wheezing #8.5 grams bisacodyl 5 mg tablet,delayed 5 mg PO ONCE #4 tabs 03/16/24 release (Dulcolax (bisacodyl)) polyethylene glycol 3350 17 17 g PO ONCE #238 grams 03/16/24 gram/dose oral powder Current Visit Medications: Current Medications Generic Name Dose Route Start Last Admin Trade Name Freq PRN Reason Stop Dose Admin Ringer's Solution 1,000 mls @ 80 mls/hr 03/27/24 06:00 03/27/24 09:52 IV 03/27/24 23:59 80 mls/hr INFUSION MARIS Administration IV Miscellaneous Supplies 1 each 03/27/24 06:00 Iv Access IV 03/27/24 23:59 DIRECTED MARIS Sodium Chloride 0 ml 03/27/24 06:00 Normal Saline Flush 10 Ml Syr IV 03/27/24 23:59 PRN PRN Sodium Chloride 0 ml 03/27/24 06:00 Normal Saline 10 Ml Vial IJ 03/27/24 23:59 DIRECTED PRN Sterile Water 0 ml 03/27/24 06:00 Water,Injection,Sterile 10 Ml Vial IJ 03/27/24 23:59 DIRECTED PRN PFSH Active Problems Active Problems: Problem Status Onset Code Urinary tract infection Acute N39.0 DUB (dysfunctional uterine bleeding) Acute N93.8 Shoulder pain Acute M25.519 Encounter for screening colonoscopy Acute Z12.11 IUD contraception Acute 03/23/22 Z97.5 Elevated blood pressure reading Acute R03.0 COVID-19 Acute ~10/2020 U07.1 Annual physical exam Acute Z00.00 History of tobacco use Acute Z87.891 Peritonsillar abscess Acute 05/09/07 J36 Status post cholecystectomy Resolved Z90.49 Status post tonsillectomy Resolved Z90.89 Uveitis Chronic 05/09/07 H20.9 Edema Acute R60.9 Neck pain Chronic M54.2 Hypermobility syndrome Chronic 05/09/07 M35.7 Depressive disorder Chronic F32.9 Chronic tension-type headache, intractable Chronic 07/29/17 G44.221 Anxiety Chronic F41.9 Acute bilateral low back pain without sciatica Chronic 08/26/17 M54.5 ASCUS with positive high risk HPV cervical Chronic 07/29/16 R87.610, R87.810 Medical History Medical History History of tobacco use Peritonsillar abscess 05/09/07 Chronic tonsillitis 05/09/07 Acute cholecystitis 05/09/07 Uveitis 05/09/07 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 + HR HPV. 08/06/16 Colpo Bx. LGSIL. Plan repeat Pap in 07/2017 Surgical History Surgical History S/P tonsillectomy S/P cholecystectomy 02/08/06 Tonsillectomy (~2005) peritonsillar abscess Cholecystectomy (~2006) Tobacco Smoking/Tobacco Use Status: Former Tobacco Use Passive smoking exposure: Yes Second hand exposure: Yes Alcohol Alcohol Intake: current Alcohol intake frequency: holidays/special occasions only Alcohol type: beer Substance Use Substance use: Rarely Substance use type: marijuana Prental History History 2 Para 2 Hx # Term Pregnancies 1 Multiple births Hx # Pregnancies 1 Ectopic pregnancies AB induced Hx Number of Living Children AB spontaneous Past Pregnancies Del. Date GA/Weeks # Preg Succ Route Wgt Sex Labor Lgth Anesth esia Location [facility] 06/12/00 34 No Yes vaginal 1814.369 g Male [facility] 08/19/08 Yes vaginal 3175.[address] [facility] Delivery Date: 06/12/00 Last Updated by: Bee Will Delivery Date: 08/19/08 Last Updated by: Bee Mcmanus Pt states she had GDM during . -[facility] Vital Signs and Lab Results Vital Signs Most Recent Vital Signs in EMR: Most Recent Vital Signs Temp Pulse Resp BP Pulse Ox 36.6 C 70 16 97/67 L 99 03/27/24 09:34 03/27/24 09:34 03/27/24 09:34 03/27/24 09:34 03/27/24 09:34 Lab Results Blood Type / Crossmatch: No Data to Display Complete Blood Count: No Data to Display Complete Metabolic Panel: No Data to Display Liver Function Panel: No Data to Display Coagulation Panel: No Data to Display Cardiac Panel: No Data to Display Arterial Blood Gas: No Data to Display Venous Blood Gas: No Data to Display Pancreas Panel: No Data to Display Thyroid Panel: No Data to Display Infectious Disease: No Data to Display Blood Cultures: No Data to Display Toxicology Panel: No Data to Display Panel: No Data to Display Anesthesia Assessment and Plan Anesthesia History Personal History: No History of Anesthesia Complications Family History: No Family History of Anesthesia Complications Exercise Tolerance Exercise Tolerance: Metabolic Equivalents>4 Pertinent Negatives Pertinent Negatives: No Symptoms of GERD Cardiac & Pulmonary Exam Cardiac Exam: Normal S1/S2 Heart Sounds Pulmonary Exam: Clear Bilateral Breath Sounds Implantable Cardiac Device Does patient have a Pacemaker or an ICD?: No Airway Exam Known Difficult Airway: No Mallampati Class: 2 Mouth Opening: Normal (> 3cm) Thyromental Distance: Greater than 3 cm Neck Range of Motion: Full ROM Neck Circumference: Normal Teeth Condition: Normal Dentition ASA Classification ASA Score: ASA 2 Emergency Case?: No NPO Status NPO Status: NPO Clears >2 hours, Solids >8 hours Status Status: Negative HCG Anesthesia Plan Resuscitation Status: Full Code Anesthesia Technique: General Anesthesia Airway Planned: Natural Airway Monitors Used: Standard Monitors
--- NOTE | 2024-03-27 10:24 | W.COLOREPORT ---
Date of service: 03/27/24 Time of Service: 10:24 Colonoscopy Report Procedure Description: PROCEDURES PERFORMED: 1. Colonoscopy PREOPERATIVE DIAGNOSIS: Screening colonoscopy POSTOPERATIVE DIAGNOSIS: Normal terminal ileum, Normal colon, normal rectum SURGEON: Lupe Bean MD INDICATION for procedure: The patient is a 48-year-old woman who has no symptoms, no family history of colon cancer, due for her for screening colonoscopy. FINDINGS: The terminal ileum was normal, no polyps are seen anywhere in the colon. No diverticular disease. No inflammation or concerning findings anywhere. Colon was overall completely normal. Rectum was completely normal. No obvious hemorrhoid disease. SURVEILLANCE interval/FOLLOW-UP: 10 years SPECIMENS: None EBL: Minimal COMPLICATIONS: None QUALITY of prep: Excellent Procedure in detail: The patient gave written consent and was in agreement with the indications, the potential risks as well as the benefits of the procedure. They were taken to the endoscopy suite and laid in the left lateral decubitus position. A timeout was performed and anesthesia was administered which was tolerated well. I started the procedure. Digital rectal and visual examination was performed and grossly within normal limits. A well-lubricated flexible colonoscope was then introduced and passed without any notable difficulty all the way to the cecum identified by the ileocecal valve and the appendiceal orifice. The T. I. was intubated and looked normal. The scope was then slowly withdrawn with the above-noted findings. The patient tolerated the procedure well and was taken to the PACU in hemodynamically stable condition.
[2024-03-27 10:25] VITALS: BMI 25.9
--- NOTE | 2024-03-27 10:25 | W.PM.DSUDISC ---
Date of service: 03/27/24 Discharge Plan Disposition Patient Disposition: Home Condition: Good Discharge Details Attending Provider: Krish Bean Primary Care Provider: Radha Preston Home Meds and New Rx's Prescriptions: No Action Mirena 21 mcg/24 hours (8 yrs) 52 mg intrauterine device 1 device intrauterine ONCE Qty: 1 0RF albuterol sulfate 90 mcg/actuation HFA aerosol inhaler 2 puff inhalation Q6H PRN (Reason: shortness of breath or wheezing) Qty: 8.5 0RF clonazepam 0.5 mg tablet 0.5 mg PO BID PRN (Reason: anxiety) Qty: 20 0RF bisacodyl [Dulcolax (bisacodyl)] 5 mg tablet,delayed release (DR/EC) 5 mg PO ONCE Qty: 4 0RF Rx Instructions: Take per colonoscopy instructions provided by ordering providers office polyethylene glycol 3350 17 gram/dose powder 17 g PO ONCE Qty: 238 0RF Rx Instructions: Take per colonoscopy instructions provided by ordering providers office Discharge Instructions Additional Instructions: FINDINGS: Your colon and rectum are completely normal and healthy. No disease processes found. Repeat another colonoscopy in 10 years. Activity:: Activity as Tolerated Diet:: As Tolerated
[2024-03-27 11:00] VITALS: BP 105/61; PULSE 65; RESP 16; TEMP 36; O2SAT 97
--- NOTE | 2024-03-27 11:10 | W.ANESPOSTOP ---
Postoperative Evaluation Date, Time and Location Date Performed: 03/27/24 Time Performed: 11:10 Patient Location: Day [facility] Unit Vital Signs Most Recent Imported Vital Signs: Most Recent Vital Signs Temp Pulse Resp BP Pulse Ox 36.6 C 70 16 97/67 L 99 03/27/24 09:34 03/27/24 09:34 03/27/24 09:34 03/27/24 09:34 03/27/24 09:34 Pain Score Most Recent Pain Score: Most Recent Pain Score Pain Level 4 03/27/24 09:34 Assessment Mental Status: Awake (Alert & Oriented to Patient Baseline) Airway and Respiratory Function: Patent airway with normal (patient baseline) respiratory exam Cardiovascular Function: Hemodynamically Stable Hydration Status: Adequately Hydrated Nausea & Vomiting: No Nausea or Vomiting Pain: Pt. Denies Any Pain Peripheral Nerve Block: Patient did not receive a nerve block Postoperative Comments:: Pt had flushing of face and ringing in ears with 80mg Lidocaine IVP. Pt disliked the facial flushing. Brody Jarquin, [employer] ART DIRECTOR
[2024-03-27 11:30] VITALS: BP 122/79; PULSE 53; RESP 16; TEMP 36.3; O2SAT 100
== END 2024-03-27 12:00 | disposition home or self-care (01) ==
PROVIDERS: PCP Family Medicine; Visit Provider Student in an Organized Health Care Education/Training Program
PROC: 0DJD8ZZ Inspection of Lower Intestinal Tract, Via Natural or Artificial Opening Endoscopic (ICD-10-PCS; CPT 45378; principal; 2024-03-27 10:45)
DX: Z12.11 Encounter for screening for malignant neoplasm of colon (principal)
CPT/HCPCS: 45378; J2003; J2704

== ENCOUNTER → 2025-01-30 00:51 | Outpatient (CLI) | payer OTHER, SELFPAY ==
--- NOTE | 2025-01-30 07:45 | DI.MAMMO_ITS ---
Exam(s) MAMMO SCREENING EXAM: MAMMO SCREENING CLINICAL HISTORY: screening,z12.39. TECHNIQUE: Bilateral full field digital CC and MLO mammographic images were obtained with 3D tomosynthesis and utilizing computer aided detection (CAD). COMPARISON: Prior mammograms were reviewed. FINDINGS: There are no new right breast findings. In the left breast on the MLO view there is an asymmetric density-possible nodule located 6 cm in from the nipple on the MLO view and measuring approximately 7 by 6 mm. Further imaging recommended. There are no malignant-appearing microcalcification groups in this region or elsewhere in either breast. There is no significant architectural distortion nor skin thickening-retraction. IMPRESSION: 1. No radiographic evidence of malignancy in the right breast. 2. Asymmetric density-possible 7 x 6 mm nodule in the left breast. Spot compression left breast MLO view and breast ultrasound recommended. BI-RADS Category 0 - Incomplete: Need additional imaging evaluation Breast Density - Category C - The breast are heterogeneously dense, which may obscure small masses. Breast density Category C or D implies that the patient has dense breast tissue. Dense breast tissue can make it harder to find cancer on a mammogram. Dense breast tissue is also associated with an increased risk of breast cancer. This information about the result of the mammogram report was provided to the patient to raise their awareness. Use this report when you speak with the patient about their risks for breast cancer, which includes their family history. At that time, you may recommend additional screening tests (Ultrasound or MRI) as these tests may add significant information. A negative radiographic report should not delay biopsy if a dominant or clinically suspicious mass is present. Up to ten percent of cancers are not identified on mammography. A negative report may reinforce clinical impression. Adenosis and dense breasts may obscure an underlying neoplasm. False positive reports average 6 to 10%. Patient will receive a letter notifying them of these results.
== END ==
PROVIDERS: PCP Family Medicine; Visit Provider Family Medicine
DX: Z12.31 Encounter for screening mammogram for malignant neoplasm of breast (principal)
CPT/HCPCS: 77063; 77067

== ENCOUNTER → 2025-02-06 16:25 | Outpatient (CLI) | payer OTHER, SELFPAY ==
--- NOTE | 2025-02-06 14:31 | DI.MAMMO_ITS ---
Exam(s) MAMMO SCREEN CALL BACK UNI EXAM: MAMMO SCREEN CALL BACK UNI CLINICAL HISTORY: F/U MAMMO, R92.8,LT ASYMMETRIC DENSITY, ? NODULE TECHNIQUE: Spot compression views with tomographic imaging were performed. COMPARISON: 2022 and 2023 and recent exam 30 January 2025 FINDINGS: No suspicious masses or suspicious microcalcifications are seen. No persistent abnormality is seen on the additional views performed. The findings are consistent with overlying fibroglandular tissue. There has been no significant change from prior exams. IMPRESSION: BI-RADS Category 1, Negative Yearly screening mammography is recommended. Breast Density - Category C - The breast are heterogeneously dense, which may obscure small masses. Breast density Category C or D implies that the patient has dense breast tissue. Dense breast tissue can make it harder to find cancer on a mammogram. Dense breast tissue is also associated with an increased risk of breast cancer. This information about the result of the mammogram report was provided to the patient to raise their awareness. Use this report when you speak with the patient about their risks for breast cancer, which includes their family history. At that time, you may recommend additional screening tests (Ultrasound or MRI) as these tests may add significant information. A negative radiographic report should not delay biopsy if a dominant or clinically suspicious mass is present. Up to ten percent of cancers are not identified on mammography. A negative report may reinforce clinical impression. Adenosis and dense breasts may obscure an underlying neoplasm. False positive reports average 6 to 10%. Patient will receive a letter notifying them of these results.
== END ==
LOC: DI 16:25
PROVIDERS: PCP Family Medicine; Visit Provider Family Medicine
DX: Z12.31 Encounter for screening mammogram for malignant neoplasm of breast (principal); R92.8 Other abnormal and inconclusive findings on diagnostic imaging of breast
CPT/HCPCS: 77063; 77067